=== PATIENT | male | born 1945 | race Caucasian/White ===

== ENCOUNTER 2017-08-26 10:03 | Outpatient (CLI) | payer OTHER ==
[~2017-08-26 10:03] MED LIST: CIPRO750 MG PO; ETODOLAC500 MG; FOLIC ACID1 MG PO; HYZAAR 100-121 UDTAB PO; INTEGRA F CAPS1 EACH PO; INTESTINEX1 CA1 PO; LOSARTAN-HCTZ1 EAC2 PO; LOSARTAN-HCTZ1 EACH; NORVASC 5MG TAB PO; Neurin-Sl Tablet Sl SL; Neurontin PO; ORPH100T; PRE PROTEIN 2030 ML PO; PYRIDOXINE HCL100 MG PO; SEPTRA 80-400 T1 TAB PO; VANCOCIN ORAL SUSP. PO; VITAMIN B-1100 MG PO; ZIPSOR25 MG PO
== END 2017-08-26 10:17 | disposition home or self-care (01) ==
LOC: LAB 10:03
DX: D50.0 Iron deficiency anemia secondary to blood loss (chronic) (principal); D51.3 Other dietary vitamin B12 deficiency anemia; I10 Essential (primary) hypertension; R73.01 Impaired fasting glucose; D50.8 Other iron deficiency anemias; D51.8 Other vitamin B12 deficiency anemias